=== PATIENT | male | born 1970 | race Hispanic/Latino ===

== ENCOUNTER 2024-10-15 12:42 | Inpatient (IN) | payer MEDICARE, SELFPAY ==
[2024-10-15 13:11] LABS: Absolute Basophils 0.1 K/uL (0-0.5); Absolute Eosinophils 0.2 K/uL (0-0.5); Absolute Lymphocytes (CBC) 1.4 K/uL (0.7-4.9); Absolute Monocytes 0.7 K/uL (0.1-1.3); Absolute Neutrophil 5.2 K/uL (1.8-8.0); Basophils % 0.8 % (0-1.3); Lymphocytes % 18.6 % (15.3-44.8); MCHC 34.6 g/dL (32.0-36.0); MCV 95.4 fL (80-100); Monocytes % 9.4 % (3.3-12.3); Neutrophils % 69.2 % (41.7-73.7); Nucleated Red Blood Cells % 0.1 % (0-0); Platelets 214 thou/uL (152-406); RBC Red Blood Cell Count 5.14 M/uL (4.33-5.43)
--- NOTE | 2024-10-15 13:17 | RAD REPORT ---
EXAM: CT brain without contrast HISTORY: STROKE ALERT COMPARISON: None TECHNIQUE: Multiple contiguous axial images were obtained and a CT of the brain without contrast. Sag ittal and coronal reformats were performed. One or more of the following dose reduction techniques were used: Automated exposure control, adjust ment of the mA and/or kV according to patient size, and/or iterative reconstruction. FINDINGS: No evidence of hydrocephalus, intracranial hemorrhage, or extra-axial fluid collection. Mild generalized brain atrophy. No evidence of midline shift or areas of brain edema. The calvarium is intact. The visualized paranasal sinuses and mastoid air cells are essentially clear . IMPRESSION: No evidence of acute intracranial abnormality. The findings were communicated with Kranthi Appiah at 10/15/2024 1:15 PM by telephone.
--- NOTE | 2024-10-15 13:20 | RAD REPORT ---
EXAMINATION: CTA HEAD CLINICAL INDICATION: STROKE ALERT TECHNIQUE: Axial CT images were obtained through the head after intravenous contrast utilizing angiog raphic protocol with 3D post-processing (maximum intensity projection images, volume rendered images and/or shaded surface rendered images). One or more of the following dose reduction technique s were used: Automated exposure control, adjustment of the mA and/or kV according to patient size, and/or iterative reconstruction. Unless otherwise specified, incidental findings do not require dedic ated imaging follow-up. COMPARISON: No prior exam. FINDINGS: ICA: The petrous, cavernous, and supraclinoid segments of the bilateral internal carotid arteries are normal. The ophthalmic artery origins are visualized and normal. The posterior communicating arteries are patent. ALLY: Anterior cerebral arteries are normal bilaterally. The anterior communicating artery is patent. MCA: Middle cerebral arteries are normal bilaterally. BLACKSMITH APPRENTICE: Posterior cerebral arteries are normal bilaterally. Vertebrobasilar: The vertebral arteries are patent. The left vertebral artery is dominant. The basila r artery is normal in appearance. 3D images confirm these findings. IMPRESSION: No significant flow abnormality is identified.
[2024-10-15 13:21] LABS: PT Prothrombin Time 10.9 SECONDS (10.0-13.0); PTT, Activated Partial Thromb 29.3 SECONDS (24.3-36.9); Protime INR 0.95
[2024-10-15 13:31] LABS: Albumin 3.7 g/dL (3.4-5.0); Albumin/Globulin Ratio 0.9 (1.1-1.8); Anion Gap 13.2 mEq/L (5.0-15.0); Bilirubin Direct 0.3 mg/dL (0-0.2); Bilirubin Indirect, Calculated 0.8 mg/dL (0.2-0.8); Bilirubin Total 1.1 mg/dL (0.2-1.0); Potassium 4.2 mEq/L (3.5-5.1); Protein, Total 7.7 g/dL (6.4-8.2); Troponin High Sensitivity 10.6 pg/mL (<58.9)
--- NOTE | 2024-10-15 13:36 | RAD REPORT ---
EXAMINATION: CTA NECK CLINICAL INDICATION: stroke TECHNIQUE: Axial CT images were obtained from the aortic arch to the skull base after intravenous con trast utilizing angiographic protocol with 3D post-processing (maximum intensity projection images, volume rendered images and/or shaded surface rendered images). One or more of the following dose redu ction techniques were used: Automated exposure control, adjustment of the mA and/or kV according to patient size, and/or iterative reconstruction. Unless otherwise specified, incidental findings do not require dedicated imaging follow-up. COMPARISON: No prior exam. FINDINGS: AORTA: The imaged aortic arch is normal. CCA: The common carotid arteries are patent and normal in caliber. ICA/ECA: Moderate hard plaquing is seen in both carotid bulbs resulting in mild stenosis on the left less than 50% and mild to moderate stenosis on the right estimated at 50%. VERTEBRAL: The cervical vertebral arteries are patent. The left vertebral artery appears dominant. SOFT TISSUE: No significant neck soft tissue abnormalities. The visualized lung apices are clear. 3D images confirm these findings. IMPRESSION: Eapj-nh-[id number] bilateral carotid stenosis as detailed caused by hard plaquing, slightly more signif icant on the right. NASCET criteria used. Mild 0-49% stenosis Moderate 50-69% stenosis Severe 70-99% stenosis
--- NOTE | 2024-10-15 13:37 | RAD REPORT ---
EXAMINATION: ONE VIEW CHEST XR CLINICAL INDICATION: stroke TECHNIQUE: Frontal chest projection is submitted. Examination is limited by patient positioning and t echnique. COMPARISON: No prior exam. FINDINGS: Chzu-[id number]-[id number] bilateral pulmonary opacities suggest pulmonary edema. The heart is moderately enlar ged. No displaced fractures identified. IMPRESSION: [id number] CHF versus volume overload pattern.
--- NOTE | 2024-10-15 14:15 | EDPHYS ---
Physician Documentation [facility] Name: Nicolas Beard Age: 54 yrs Sex: Male : 1970 Arrival Date: 10/15/2024 Time: 12:42 Bed 4 Private MD: ED Physician Kranthi Appiah HPI: 10/15 13:04 This 54 yrs old Male presents to ER via Wheelchair with complaints of CVA. rt 13:04 Patient presents to the ED with an acute onset of right-sided weakness starting at rt about noon. Patient has had worsening confusion, difficulty with speech. Patient was reportedly well this morning. I discussed with the on the phone, he does have a history of hypertension and diabetes, takes medicines for that. Patient does have a history of significant alcohol abuse, the states that he vomits blood most mornings and has been doing so for some time but is never been scoped nor had this evaluated. Denies other acute complaints at this time, symptoms are severe in severity, no other aggravating or alleviating factors.. - Immunization history:: Adult Immunizations unknown. - Infectious Disease History:: Denies. - Social history:: Smoking status: Patient reports the use of cigarette tobacco products. ROS: 13:04 Unable to obtain ROS due to Nonverbal patient, rt Exam: 13:04 Constitutional: This is a well developed, well nourished patient who is awake, alert, rt and in no acute distress. Head/Face: Normocephalic, atraumatic. Chest/axilla: Normal chest wall appearance and motion. Nontender with no deformity. No lesions are appreciated. Cardiovascular: Regular rate and rhythm with a normal S1 and S2. No gallops, murmurs, or rubs. Normal PMI, no JVD. No pulse deficits. Respiratory: Lungs have equal breath sounds bilaterally, clear to auscultation and percussion. No rales, rhonchi or wheezes noted. No increased work of breathing, no retractions or nasal flaring. Abdomen/GI: Soft, non-tender, with normal bowel sounds. No distension or tympany. No guarding or rebound. No evidence of tenderness throughout. Skin: Warm, dry with normal turgor. Normal color with no rashes, no lesions, and no evidence of cellulitis. 13:04 Neuro: Mumbling, incoherent speech, dense hemiparesis on right upper, right lower extremities, right-sided facial droop, no other obvious cranial nerve deficits, sensation not testable due to cooperation, understanding., 13:27 ECG was reviewed by the Attending Physician. rt Vital Signs: 12:40 Pulse 92; Resp 18; Pulse Ox 98% ; db 13:12 BP 140 / 96; Pulse 86; Resp 15; Pulse Ox 95% on R/A; ld1 12:40 UNABLE TO OBTAIN INITIAL BP. db NIH Stroke Scale Scores: 13:04 NIHSS Score: 14 rt MDM: 12:52 Medical Screening Exam initiated rt 14:46 Differential Diagnosis Acute CVA, TIA, LVO, intracranial hemorrhage. Data reviewed: rt vital signs, nurses notes, lab test result(s), EKG, radiologic studies. Consideration of Admission/Observation Patient was admitted/placed on observation. Management of patient was discussed with the following: Aerial Photogrammetrist: Discussed with Dr. Lilly, given possible history of varicosities as well as occasional vomiting blood, believe that the risks of TNKase administration are greater then potential benefits given possible worsening bleeding. Recommends against dual antiplatelet therapy, recommends aspirin at this time.. I considered the following discharge prescriptions or medication management in the emergency department Medications were administered in the Emergency Department. See MAR. Independent interpretation of the following test(s) in the Emergency Department CT Scan: My interpretation is No intracranial hemorrhage seen on interpretation of CT scan images. Historians other than the Patient: Spouse/Significant Other: Spouse states that the patient very frequently will have episodes of vomiting blood in the morning, reports history of heavy alcohol use.. Care significantly affected by the following chronic conditions: Diabetes, Hypertension. Care significantly affected by the following Social Determinants of Health: Misuse of alcohol and/or drugs. Counseling: I had a detailed discussion with the patient and/or guardian regarding the historical points, exam findings, and any diagnostic results supporting the discharge/admit diagnosis, lab results, radiology results, the need for further work-up and treatment in the hospital. Response to treatment: There is no appreciated change of the patient's symptoms at this time. ED course: Thrombolytics are contraindicated due to possible GI bleeding. No large vessel occlusion identified on CT angiogram, is not an endovascular retrieval candidate.. 10/15 12:54 Order name: Basic Metabolic Panel; Complete Time: 13:35 rt 10/15 12:54 Order name: CBC with Diff; Complete Time: 13:35 rt 10/15 12:54 Order name: Hepatic Function; Complete Time: 13:35 rt 10/15 12:54 Order name: High Sensitivity Troponin; Complete Time: 13:35 rt 10/15 12:54 Order name: Protime (+inr); Complete Time: 13:35 rt 10/15 12:54 Order name: Ptt, Activated; Complete Time: 13:35 rt 10/15 13:21 Order name: Glucose, Ancillary Testing; Complete Time: 13:35 EDMS 10/15 15:22 Order name: Magnesium EDMS 10/15 15:22 Order name: Phosphorus EDMS 10/15 15:22 Order name: T4 Free EDMS 10/15 15:22 Order name: Thyroid Stimulating Hormone EDDC 10/15 15:22 Order name: Urinalysis w/ reflexes EDMS 10/15 15:22 Order name: Basic Metabolic Panel EDDC 10/15 15:22 Order name: Basic Metabolic Panel EDDC 10/15 15:22 Order name: CBC with Automated Diff EDMS 10/15 15:22 Order name: CBC with Automated Diff EDMS 10/15 15:22 Order name: Troponin High Sensitivity EDMS 10/15 15:22 Order name: Troponin High Sensitivity EDMS 10/15 15:22 Order name: Troponin High Sensitivity EDMS 10/15 15:22 Order name: Troponin High Sensitivity EDDC 10/15 16:18 Order name: Troponin High Sensitivity EDDC 10/15 17:31 Order name: NT PRO-BNP EDDC 10/15 12:54 Order name: CT Head Angio; Complete Time: 13:35 rt 10/15 12:54 Order name: CT Neck Angio; Complete Time: 13:38 rt 10/15 12:54 Order name: CT Stroke Brain w/o Contrast; Complete Time: 13:35 rt 10/15 12:54 Order name: Stroke CXR 1 View; Complete Time: 13:38 rt 10/15 15:26 Order name: Echo with Doppler EDMS 10/15 17:06 Order name: MRI EDDC 10/15 15:22 Order name: Patient Safety Orders EDMS 10/15 15:22 Order name: CONS Physician Consult EDMS 10/15 12:54 Order name: Accucheck; Complete Time: 13:03 rt 10/15 12:54 Order name: Cardiac monitoring; Complete Time: 13:11 rt 10/15 12:54 Order name: EKG - Nurse/Tech; Complete Time: 13:11 rt 10/15 12:54 Order name: IV Saline Lock; Complete Time: 13:04 rt 10/15 12:54 Order name: Labs collected and sent; Complete Time: 13:04 rt 10/15 12:54 Order name: NPO; Complete Time: 13:04 rt 10/15 12:54 Order name: O2 Per Protocol; Complete Time: 13:07 rt 10/15 12:54 Order name: O2 Sat Monitoring; Complete Time: 13:07 rt 10/15 12:54 Order name: Stroke Swallow Screen; Complete Time: 13:22 rt EC: Rate is 84 beats/min. Rhythm is regular, Normal Sinus Rhythm with No ectopy, Right rt bundle branch block. QRS [place] is Normal. ME interval is normal. QRS interval is normal. QT interval is normal. No Q waves. No ST changes noted. Interpreted by me. Administered Medications: 14:20 Drug: Thiamine IV 100 mg IV at calculated rate once Route: IV; Rate: calculated rate; ld1 Site: left wrist; 21:02 Follow up: Response: No adverse reaction; IV Status: Completed infusion; IV Intake: al5 100ml 14:20 Drug: Aspirin PO 325 mg PO once Route: PO; ld1 21:02 Follow up: Response: No adverse reaction al5 Disposition: 14:48 Chart complete. rt Disposition Summary: 10/15/24 14:15 Hospitalization Ordered Notes: Hospitalization Status: Inpatient Admission rt Provider: Aishwarya Logan rt Condition: Serious rt Problem: new rt Symptoms: are unchanged rt Bed/Room Type: Standard rt Location: Telemetry/MedSurg (Inpatient)(10/15/24 19:19) sp Room Assignment: [facility](10/15/24 19:19) sp Diagnosis - Acute CVA rt Forms: - Medication Reconciliation Form rt - SBAR form rt - Leadership Thank You Letter rt Critical care time excluding procedures: 14:48 Critical care time: Bedside Care: 30 minutes, Consultation: 10 minutes. Total time: 40 rt minutes NIH Stroke Scale - NIH Stroke Score Date: 10/15/2024 Time: 13:04 Total Score = 14 10. Dysarthria (speech clarity - read or repeat words) - 1(Mild to Moderate) 11. Extinction and Inattention (visual/tactile/auditory/spatial/personal) - 0(No abnormality) 1a. Level of Consciousness (LOC) - 0(Alert) 1b. Level of Consciousness (LOC) (Month \T\ Age) - 2(Neither) 1c. LOC Commands (Open \T\ Closes Eyes/Asian Studies Professor) - 0(Both) 2. Best Gaze (Lateral Gaze Paresis) - 0(Normal) 3. Visual Field Loss - 0(No visual loss) 4. Facial Palsy - 2(Partial paralysis) 5a. Left Arm: Motor (10-second hold) - 0(No drift) 5b. Right Arm: Motor (10-second hold) - 4(No movement) 6a. Left Leg: Motor (5-second hold - always test supine) - 0(No drift) 6b. Right Leg: Motor (5-second hold - always test supine) - 4(No movement) 7. Limb Ataxia (finger/nose \T\ heel/nieto - test with eyes open) - 0(Absent) 8. Sensory Loss (pinprick arms/legs/face) - 0(Normal) 9. Best Language: Aphasia (description/naming/reading) - 1(Mild to moderate aphasia) Initials: rt Signatures: Dispatcher [employer] EDMS Cathie Elizabeth Lauren, RN RN ld1 Colleen Beyer, RN RN kb3 Stephanie Fulton, RN RN db Kranthi Appiah MD MD rt Sherley Holly RN al5 Corrections: (The following items were deleted from the chart) 12:54 12:54 BASIC METABOLIC PANEL+C.LAB.BRZ ordered. EDMS EDMS 12:54 12:54 CBC+H.LAB.BRZ ordered. EDMS EDMS 12:54 12:54 HEPATIC FUNCTION+C.LAB.BRZ ordered. EDMS EDMS 12:54 12:54 Troponin High Sensitivity+C.LAB.BRZ ordered. EDMS EDMS 12:54 12:54 PROTIME (+INR)+COAG.LAB.BRZ ordered. EDMS EDMS 12:54 12:54 PTT, ACTIVATED+COAG.LAB.BRZ ordered. EDMS EDMS 12:54 12:54 Head Angio+CT.RAD.BRZ ordered. EDMS EDMS 12:54 12:54 Neck Angio+CT.RAD.BRZ ordered. EDMS EDMS 12:54 12:54 CT-STROKE BRAIN W/O CONTRAST+CT.RAD.BRZ ordered. EDMS EDMS 12:54 12:54 Chest Single View+RAD.RAD.BRZ ordered. EDMS EDMS 16:21 14:15 Telemetry/MedSurg (Inpatient) rt kb3 16:21 14:15 rt kb3 19:19 16:21 [facility] ER HOLD kb3 sp 19:19 16:21 ERHOLD- kb3 sp
--- NOTE | 2024-10-15 14:15 | ER ---
Nurse's Notes [facility] Name: Nicolas Beard Age: 54 yrs Sex: Male : 1970 Arrival Date: 10/15/2024 Time: 12:42 Bed 4 Private MD: Diagnosis: Acute CVA Presentation: 10/15 12:40 Chief complaint: Patient states: R sided paralysis that began 40 mintues ago. ss 12:40 Chief complaint: PATIENT FOUND BY FAMILY WITH RIGHT SIDE PARALYSES AND CONFUSION. LAST db KNOWN NORMAL AT 1200. PATIENT UNABLE TO FOLLOW COMMANDS AND ANSWER QUESTIONS. Coronavirus screen: Client denies travel out of the [place] in the last 14 days. At this time, the client does not indicate any symptoms associated with coronavirus-19. Ebola Screen: Patient negative for fever greater than or equal to 101.5 degrees Fahrenheit, and additional compatible Ebola Virus Disease symptoms Patient denies exposure to infectious person. Patient denies travel to an Ebola-affected area in the 21 days before illness onset. No symptoms or risks identified at this time. Initial Sepsis Screen: Does the patient meet any 2 criteria? No. Patient's initial sepsis screen is negative. Does the patient have a suspected source of infection? No. Patient's initial sepsis screen is negative. Risk Assessment: Do you want to hurt yourself or someone else? Patient reports no desire to harm self or others. Onset of symptoms was October 15, 2024 at 12:00. 12:40 Method Of Arrival: Wheelchair db 12:40 Acuity: LEOBARDO 2 db Triage Assessment: 12:49 General: Appears in no apparent distress. Behavior is CONFUSED. Pain: Unable to use db pain scale. Patient is disoriented. Neuro: Level of Consciousness is awake, alert, Oriented to none. Respiratory: Airway is patent Respiratory effort is even, unlabored, Respiratory pattern is regular, symmetrical. - Immunization history:: Adult Immunizations unknown. - Infectious Disease History:: Denies. - Social history:: Smoking status: Patient reports the use of cigarette tobacco products. Screenin:07 [facility] ED Fall Risk Assessment (Adult) History of falling in the last 3 months, bp including since admission No falls in past 3 months (0 pts) Confusion or Disorientation No (0 pts) Intoxicated or Sedated No (0 pts) Impaired Gait No (0 pts) Mobility Assist Device Used No (0 pt) Altered Elimination No (0 pt) Score/Fall Risk Level 0 - 2 = Low Risk Oriented to surroundings. Abuse screen: Denies threats or abuse. Denies injuries from another. Nutritional screening: No deficits noted. Tuberculosis screening: No symptoms or risk factors identified. Assessment: 12:40 Reassessment: CODE STROKE CALLED. ss 12:47 Reassessment: Pt to CT. ld1 13:06 Reassessment: PER MD, PT NOT TNKASE CANDIDATE 2/2 DAILY HEMATEMESIS. bp 19:18 Rosa Swallow Protocol Exclusion Criteria: Exclusion Criteria Result: Proceed Brief al5 Cognitive Screen Oral Mechanism Examination Facial Symmetry: Normal, Motion: Normal, Lip Closure: Normal, Oral Mechanism Result: Normal. 3 oz Water Swallow Challenge: Pt able to drink all water without stopping, coughing, choking or throat clearing: Yes Result: PASS. Vital Signs: 12:40 Pulse 92; Resp 18; Pulse Ox 98% ; db 13:12 BP 140 / 96; Pulse 86; Resp 15; Pulse Ox 95% on R/A; ld1 12:40 UNABLE TO OBTAIN INITIAL BP. db NIH Stroke Scale Scores: 13:04 NIHSS Score: 14 rt ED Course: 12:40 Arm band placed on Patient placed in an exam room. db 12:44 Patient arrived in ED. bd 12:49 Triage completed. db 12:52 Kranthi Appiah MD is Attending Physician. rt 13:00 Inserted saline lock: 18 gauge in right wrist, using aseptic technique. Blood zm collected. Flushed with 10 mL NS. 13:03 Initial lab(s) drawn, by me, sent to lab. zm 13:04 Basic Metabolic Panel Sent. zm 13:04 CBC with Diff Sent. zm 13:04 Hepatic Function Sent. zm 13:04 High Sensitivity Troponin Sent. zm 13:04 Protime (+inr) Sent. zm 13:04 Ptt, Activated Sent. zm 13:06 Domingo Patricia, RN is Primary Nurse. bp 13:08 Patient has correct armband on for positive identification. bp 13:12 CT Head Angio In Process Unspecified. EDMS 13:12 CT Neck Angio In Process Unspecified. EDMS 13:12 CT Stroke Brain w/o Contrast In Process Unspecified. EDMS 13:16 Inserted saline lock: 18 gauge in left forearm, using aseptic technique. Flushed with zm 10 mL NS. 13:33 Stroke CXR 1 View In Process Unspecified. EDMS 14:14 Aishwarya Logan MD is Hospitalizing Provider. rt 21:01 Provided Education on: need for admission. al5 21:01 No provider procedures requiring assistance completed. Patient admitted, IV remains in al5 place. Administered Medications: 14:20 Drug: Thiamine IV 100 mg IV at calculated rate once Route: IV; Rate: calculated rate; ld1 Site: left wrist; 21:02 Follow up: Response: No adverse reaction; IV Status: Completed infusion; IV Intake: al5 100ml 14:20 Drug: Aspirin PO 325 mg PO once Route: PO; ld1 21:02 Follow up: Response: No adverse reaction al5 Medication: 21: VIS not applicable for this client. al5 Intake: 21:02 IV: 100ml; Total: 100ml. al5 Outcome: 14:15 Decision to Hospitalize by Provider. rt 21:01 Admitted to Med/surg accompanied by nurse, family with patient, via stretcher, room al5 207, with chart, 21:01 Condition: stable 21:01 Instructed on the need for admit, 21:01 Patient left the ED. al5 NIH Stroke Scale - NIH Stroke Score Date: 10/15/2024 Time: 13:04 Total Score = 14 10. Dysarthria (speech clarity - read or repeat words) - 1(Mild to Moderate) 11. Extinction and Inattention (visual/tactile/auditory/spatial/personal) - 0(No abnormality) 1a. Level of Consciousness (LOC) - 0(Alert) 1b. Level of Consciousness (LOC) (Month \T\ Age) - 2(Neither) 1c. LOC Commands (Open \T\ Closes Eyes/Quality Reviewer) - 0(Both) 2. Best Gaze (Lateral Gaze Paresis) - 0(Normal) 3. Visual Field Loss - 0(No visual loss) 4. Facial Palsy - 2(Partial paralysis) 5a. Left Arm: Motor (10-second hold) - 0(No drift) 5b. Right Arm: Motor (10-second hold) - 4(No movement) 6a. Left Leg: Motor (5-second hold - always test supine) - 0(No drift) 6b. Right Leg: Motor (5-second hold - always test supine) - 4(No movement) 7. Limb Ataxia (finger/nose \T\ heel/nieto - test with eyes open) - 0(Absent) 8. Sensory Loss (pinprick arms/legs/face) - 0(Normal) 9. Best Language: Aphasia (description/naming/reading) - 1(Mild to moderate aphasia) Initials: rt Signatures: Dispatcher [employer] EDMS Lexi Degroot Shelby, RN RN ss Peltier, Brian, RN RN bp Sims, Lauren, RN RN ldLakeisha Capone Danielle RN RN db Kranthi Appiah MD MD rt Sherley Holly RN RN al5 Corrections: (The following items were deleted from the chart) 13:03 13:03 Inserted saline lock: 18 gauge in right wrist, using aseptic technique. zm Blood collected. Flushed with 10 mL NS zm
[2024-10-15] MEDS ORDERED: THIAMINE 200 MG/2 ML INJ ONE (14:16)
[2024-10-15] MEDS ORDERED: ASPIRIN 81 MG CHEWABLE TABLET ONE (14:16)
[2024-10-15] MEDS ORDERED: ONDANSETRON 4 MG/2 ML VIAL IV PRN (15:15)
[2024-10-15] MEDS ORDERED: ACETAMINOPHEN 325 MG TABLET PO PRN (15:19)
[2024-10-15] MEDS ORDERED: GLUCAGON 1 MG/VIAL IM PRN (15:43)
[2024-10-15] MEDS ORDERED: D10W 125 ML IV PRN (15:43)
--- NOTE | 2024-10-15 15:48 | P.HP ---
Certification for Inpatient Patient admitted to: Inpatient With expected LOS: >2 Midnights Patient will require the following post-hospital care: None Practitioner: I am a practitioner with admitting privileges, knowledge of patient current condition, hospital course, and medical plan of care. Services: Services provided to patient in accordance with Admission requirements found in Title 42 Section 412.3 of the Code of Federal Regulations <Betzy Dfufy - Last Filed: 10/15/24 19:28> Patient History Date of Service: 10/15/24 Reason for admission: Right sided hemiplegia, dysarthria History of Present Illness: Patient is a 54-year-old male with a past medical history significant for hypertension, DM2, alcohol abuse who presents with complaint of right-sided weakness and hemiparesis onset this morning. Patient is Turkish-speaking. Patient currently confused and with speech difficulties. Patient is unable to provide any history. Patient's speech is garbled. Patient's reported the patient was at work when they noticed patient developed difficulty with speech and right-sided weakness. Patient's prior reported that patient has been having episodes of periodic hematemesis sometimes in the mornings. No other signs and symptoms reported. Symptoms are aggravated or relieved by doctor. Patient was brought to the hospital for medical evaluation. Home medications list reviewed: Yes - Past Medical/Surgical History Diabetic: Yes -: Alcohol abuse. -: Hypertension -: DM2. Past Surgical History: Reviewed- Non-Contributory - Family History Family History: Reviewed- Non-Contributory - Social History Smoking Status: Never smoker Alcohol use: Yes CD- Drugs: No Caffeine use: No Place of Residence: Home <Betzy Duffy - Last Filed: 10/15/24 19:28> Date of Service: 10/15/24 <Aishwarya Logan - Last Filed: 10/15/24 19:37> Allergies No Known Allergies Allergy (Unverified 10/15/24 15:50) Review of Systems is unable to be obtained (Speech is garbled and patient is confused.) <Betzy Duffy - Last Filed: 10/15/24 19:28> Physical Examination - Physical Exam General: Alert, In no apparent distress, Confused HEENT: Atraumatic, PERRLA, Mucous membr. moist/pink, EOMI, Sclerae nonicteric Neck: Supple, 2+ carotid pulse no bruit, No LAD, Without JVD or thyroid abnormality Respiratory: Clear to auscultation bilaterally, Normal air movement Cardiovascular: No edema, Regular rate/rhythm, Normal S1 S2 Capillary refill: <2 Seconds Gastrointestinal: Normal bowel sounds, No tenderness Musculoskeletal: No clubbing, No swelling, No tenderness Integumentary: No rashes Neurological: Normal tone, Normal affect, Abnormal gait, Abnormal speech, Abnormal strength, Abnormal tone Lymphatics: No axilla or inguinal lymphadenopathy - Studies Laboratory Data (last 24 hrs) 10/15/24 10/15/24 10/15/24 13:00 13:00 13:00 WBC 7.50 Hgb 17.0 Hct 49.0 Plt Count 214 PT 10.9 INR 0.95 APTT 29.3 Sodium 137 Potassium 4.2 BUN 16 Creatinine 0.95 Glucose 336 H Total Bilirubin 1.1 H AST 37 ALT 71 H Alkaline Phosphatase 107 <Betzy Duffy - Last Filed: 10/15/24 19:28> - Studies Laboratory Data (last 24 hrs) 10/15/24 10/15/24 10/15/24 13:00 13:00 13:00 WBC 7.50 Hgb 17.0 Hct 49.0 Plt Count 214 PT 10.9 INR 0.95 APTT 29.3 Sodium 137 Potassium 4.2 BUN 16 Creatinine 0.95 Glucose 336 H Total Bilirubin 1.1 H AST 37 ALT 71 H Alkaline Phosphatase 107 <Aishwarya Logan - Last Filed: 10/15/24 19:37> Assessment and Plan - Plan CVA with right-sided hemiparesis. Dysarthria Acute metabolic encephalopathy --MRI brain indicatess evidence of a 12 mm acute CVA left basal ganglia probably in the thalamus --CTA neck indicates mild stenosis on the left less than 50% and mild to moderate stenosis on the right estimated at 50%. --Echocardiogram pending to assess cardiac structures and functions. --CTA head indicates no LVO or occlusion. --Continue aspirin, Plavix and statin. --PT\ST\OT eval and treat. --Neurology consulted. Recommendations appreciated --Telemetry to monitor for any significant arrhythmia. DM2 with hyperglycemia. -- BS monitoring with sliding scale insulin. Hypertension --Will allow permissive hypertension for SBP less than 220 mmHg. --We will continue to monitor blood pressure levels. DVT prophylaxis with Lovenox subQ. Discharge Plan: Home Plan to discharge in: Greater than 2 days - Advance Directives Does patient have a Living Will: No Does patient have a Durable POA for Healthcare: No - Code Status/Comfort Care Code Status Assessed: Yes Physician Review: Patient Assessed, Agree with Above Assessment and Plan Critical Care: No <Betzy Duffy - Last Filed: 10/15/24 19:28> Physician Review: Patient Assessed, Agree with Above Assessment and Plan <Aishwarya Logan - Last Filed: 10/15/24 19:37>
[2024-10-15 16:17] LABS: Magnesium 2.3 mg/dL (1.6-2.4); Phosphorus 3.6 mg/dL (2.5-4.9); Thyroid Stimulating Hormone 1.44 uIU/mL (0.358-3.740); Troponin High Sensitivity 8.3 pg/mL (<58.9)
[2024-10-15] MEDS: INSULIN REGULAR (HUMAN) 100 UNIT/ML SQ SCH (16:30)
[2024-10-15] MEDS ORDERED: LORazepam 2 MG/ML VIAL ONE ×2 (16:30→17:25)
[2024-10-15] MEDS: LORazepam 2 MG/ML VIAL IV ONE ×2 (16:42→17:15)
[2024-10-15] MEDS ORDERED: FUROSEMIDE 40 MG/4 ML VIAL IV SCH (17:00)
--- NOTE | 2024-10-15 17:05 | RAD REPORT ---
EXAMINATION: MRI BRAIN WITHOUT CONTRAST CLINICAL INDICATION: R O CVA TECHNIQUE: Multiplanar multisequence MR images of the brain were obtained without intravenous contras t. Unless otherwise specified, incidental findings do not require dedicated imaging follow-up. COMPARISON: Recent WATER SYSTEM OPERATOR imaging FINDINGS: Due to excessive patient motion limited pulse sequences could be obtained. Diffusion-weighted imaging /ADC map shows evidence of a 12 mm acute CVA in the left basal ganglia. Further detailed assessment is not possible. No midline shift seen.. IMPRESSION: The study is very limited due to patient motion, however there is evidence of a 12 mm acute CVA left basal ganglia probably in the thalamus.
[2024-10-15] MEDS ORDERED: INSULIN REGULAR (HUMAN) 100 UNIT/ML ONE (18:04)
[2024-10-15] MEDS: MULTIVITAMIN TAB PO SCH (20:00)
[2024-10-15] MEDS: FOLIC ACID 1 MG TABLET PO SCH (20:00)
[2024-10-15] MEDS: THIAMINE HCL 100 MG TABLET PO SCH (20:00)
[2024-10-15] MEDS ORDERED: ATORVASTATIN 40 MG TAB ONE (20:07)
[2024-10-15] MEDS ORDERED: THIAMINE HCL 100 MG TABLET ONE (20:07)
[2024-10-15] MEDS ORDERED: FOLIC ACID 1 MG TABLET ONE (20:07)
[2024-10-15] MEDS ORDERED: ENOXAPARIN 40 MG/0.4 ML SQ ONE (20:08)
[2024-10-15] MEDS ORDERED: MULTIVITAMIN TAB PO ONE (20:08)
[2024-10-15] MEDS: ENOXAPARIN 40 MG/0.4 ML SQ SCH (20:21)
[2024-10-15] MEDS: ATORVASTATIN 40 MG TAB PO SCH (20:22)
[2024-10-15] MEDS: INSULIN GLARGINE 100 UNIT/ML SQ SCH (22:07)
[2024-10-15] MEDS: HYDRALAZINE HCL 20 MG/ML VIAL IV PRN (22:25)
[2024-10-15] MEDS: LORazepam 2 MG/ML VIAL IV PRN (23:58)
[2024-10-16] MEDS ORDERED: HYDRALAZINE HCL 20 MG/ML VIAL IV PRN
[2024-10-16] MEDS: HYDROCODONE/APAP 10/325 TAB PO PRN (02:19)
[2024-10-16 02:28] LABS: Urine Bilirubin NEGATIVE (Negative); Urine Blood Negative (Negative); Urine Clarity Clear (Clear); Urine Color Yellow (Yellow); Urine Glucose 4+ (Over) (Negative); Urine Ketones NEGATIVE (Negative); Urine Microscopic Reflex YN NO UMIC; Urine Nitrite NEGATIVE (Negative); Urine Protein NEGATIVE (Negative); Urine Urobilinogen Normal (Normal)
[2024-10-16 02:37] LABS: Specific Gravity > 1.030 (1.005-1.030)
[2024-10-16 04:49] LABS: Absolute Basophils 0.1 K/uL (0-0.5); Absolute Eosinophils 0.2 K/uL (0-0.5); Absolute Lymphocytes (CBC) 1.5 K/uL (0.7-4.9); Absolute Monocytes 0.7 K/uL (0.1-1.3); Absolute Neutrophil 4.5 K/uL (1.8-8.0); Basophils % 0.9 % (0-1.3); Eosinophils % 2.5 % (0-4.4); Hemoglobin 16.3 g/dL (13.6-17.9); Lymphocytes % 21.8 % (15.3-44.8); MCH 32.8 pg (27.0-35.0); MCHC 33.9 g/dL (32.0-36.0); MCV 96.9 fL (80-100); MPV 8.1 fL (7.6-11.3); Monocytes % 10.6 % (3.3-12.3); Neutrophils % 64.2 % (41.7-73.7); Platelets 209 thou/uL (152-406); RBC Red Blood Cell Count 4.95 M/uL (4.33-5.43); Red Cell Distribution Width 13.1 % (12.1-15.2)
[2024-10-16 05:06] LABS: Anion Gap 9.5 mEq/L (5.0-15.0); Potassium 3.5 mEq/L (3.5-5.1)
[2024-10-16] MEDS ORDERED: LORazepam 2 MG/ML VIAL IV PRN (06:25)
[2024-10-16] MEDS: LORazepam 2 MG/ML VIAL ONE (06:39)
[2024-10-16] MEDS: LORazepam 2 MG/ML VIAL IV SCH (08:00)
[2024-10-16] MEDS: CLOPIDOGREL 75 MG TABLET PO SCH (09:00)
[2024-10-16] MEDS: ASPIRIN 81 MG CHEWABLE TABLET PO SCH (09:00)
[2024-10-16] MEDS: ASPIRIN 300 MG/SUPP PR SCH (10:00)
[2024-10-16] MEDS: FOLIC ACID 1 MG, MULTIVITAMINS INJ 10 ML, THIAMINE HCL 100 MG in NA CHLORIDE 0.9% 1,000 ML IV SCH (10:11)
--- NOTE | 2024-10-16 13:09 | ECHO ---
HEIGHT: 5 ft 6 in WEIGHT: 180 lb 0 oz DATE OF STUDY: 10/16/[address]: Betzy Duffy 2-DIMENSIONAL: YES M.MODE: YES DOPPLER: YES COLOR FLOW: YES TDS: PORTABLE: YES DEFINITY: BUBBLE STUDY: DIAGNOSIS: SUSPECTED CONGESTIVE HEART FAILURE/ TRANSIENT ISCHEMIC ATTACK CARDIAC HISTORY: CATHERIZATION: SURGERY: PROSTHETIC VALVE: PACEMAKER: MEASUREMENTS (cm) DIASTOLIC (NORMALS) SYSTOLIC (NORMALS) IVSd 1.1 (0.6-1.2) LA Diam 3.5 (1.9-4.0) LVEF 60-65% LVIDd 4.8 (3.5-5.7) LVIDs 3.1 (2.0-3.5) %FS 35% LVPWd 1.3 (0.6-1.2) Ao Diam 2.4 (2.0-3.7) 2 DIMENSIONAL ASSESSMENT: RIGHT ATRIUM: NORMAL LEFT ATRIUM: NORMAL RIGHT VENTRICLE: NORMAL LEFT VENTRICLE: NORMAL TRICUSPID VALVE: NORMAL MITRAL VALVE: NORMAL PULMONIC VALVE: NORMAL AORTIC VALVE: NORMAL PERICARDIAL EFFUSION: NONE AORTIC ROOT: NORMAL LEFT VENTRICULAR WALL MOTION: NORMAL DOPPLER/COLOR FLOW: NORMAL COMMENTS: 1. NORMAL LEFT VENTRICULAR SYSTOLIC FUNCTION, EJECTION FRACTION 60-65%, NORMAL WALL MOTION 2. NORMAL DIASTOLIC FUNCTION TECHNOLOGIST: CRYSTAL BOSS
[2024-10-16] MEDS: LORazepam 2 MG/ML VIAL IV PRN (14:17)
[2024-10-16] MEDS ORDERED: DEXMEDETOMIDINE HCL 200 MCG in NA CHLORIDE 0.9% 98 ML IV SCH (15:00)
[2024-10-16] MEDS: DEXMEDETOMIDINE HCL 1,000 MCG in NA CHLORIDE 0.9% 490 ML IV SCH (15:28)
--- NOTE | 2024-10-16 15:28 | P.PN ---
Date of Service: 10/16/24 Subjective: Increasing agitation and confusion overnight Concern for worsening/severe alcohol withdrawal Patient moved to the ICU for further management ROS: 10 point ROS as noted above, otherwise negative Physical exam GEN: Disoriented, confused, agitated, not following commands HEENT: Normal conjunctiva, sclera anicteric CV: Regular rate and rhythm, no edema Pulm: Nonlabored respirations on room air ABD: Soft, nontender, nondistended MSK: No joint tenderness Integumentary: No rashes Neuro: Right upper and lower extremity weakness, slurred speech, not following commands, restless Vitals reviewed Assessment: 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 Severe/acute alcohol withdrawal and alcohol use disorder Diabetes mellitus type 2 with hyperglycemia Hypertension Plan: 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 CTA negative for LVO Did not receive TNK as family reported frequent bouts of hematemesis and heavy alcohol use Unable to pass swallow screen at this time likely secondary to severe alcohol withdrawals Rectal aspirin daily, neurology consult PT, OT, speech therapy when mental status is improving after alcohol withdrawals Likely to have prolonged/complicated hospitalization Severe/acute alcohol withdrawal and alcohol use disorder ICU for close monitoring Alcohol withdrawal protocol in place Precedex added given severe agitation Patient drinks at least 16-16 ounce beers daily and has for many years Patient appears to be having visual hallucinations, severe agitation already Diabetes mellitus type 2 with hyperglycemia Unclear what home medications patient is on ACHS Accu-Chek, sliding scale insulin Will obtain A1c level Hypertension Allow for permissive hypertension for the first 48 hours up to 220/110 DVT PPX:Lovenox Code status:Roll Or Tape Edge Machine Operator Spent Managing Pts Care (In Minutes): 45 <Keith Christopher - Last Filed: 10/16/24 15:30> I have personally seen and evaluated the patient. I have reviewed the history, physical exam findings, and assessment provided by Keith Christopher SEMICONDUCTOR TECHNICIAN. Care with the plan of care as documented, with any additional modifications as noted <Aishwarya Logan - Last Filed: 10/16/24 16:48>
--- NOTE | 2024-10-16 16:47 | EKG ---
Test Date: 2024-10-15 Test Time: 13:10:03 Superintendent Marine: Deshaun SOL MEASUREMENT RESULTS: Intervals: Rate: 84 NH: 182 QRSD: 98 QT: 382 QTc: 451 Ethel: P: 57 NH: 182 QRS: -4 T: 40 INTERPRETIVE STATEMENTS: Normal sinus rhythm Incomplete right bundle branch block Nonspecific T wave abnormality Abnormal ECG No previous ECG available for comparison Electronically Signed On 10-16-24 16:44:10 MANAGER CLINICAL RESEARCH by Simon Zhu
[2024-10-16] MEDS ORDERED: GLUCAGON 1 MG/VIAL IM PRN (18:11)
[2024-10-16] MEDS ORDERED: D10W 125 ML IV PRN (18:11)
[2024-10-16] MEDS: INSULIN GLARGINE 100 UNIT/ML SQ SCH (21:00)
[2024-10-17] MEDS: INSULIN REGULAR (HUMAN) 100 UNIT/ML SQ SCH (00:01)
[2024-10-17 05:42] LABS: Absolute Eosinophils 0.3 K/uL (0-0.5); Absolute Lymphocytes (CBC) 1.4 K/uL (0.7-4.9); Absolute Monocytes 0.8 K/uL (0.1-1.3); Absolute Neutrophil 6.3 K/uL (1.8-8.0); Basophils % 0.4 % (0-1.3); Eosinophils % 3.1 % (0-4.4); Hematocrit 53.8 % (39.6-49.0); Hemoglobin 17.9 g/dL (13.6-17.9); Lymphocytes % 16.1 % (15.3-44.8); MCH 32.7 pg (27.0-35.0); MCHC 33.2 g/dL (32.0-36.0); MCV 98.7 fL (80-100); Monocytes % 8.7 % (3.3-12.3); Neutrophils % 71.7 % (41.7-73.7); Nucleated Red Blood Cells % 0.1 % (0-0); Platelets 177 thou/uL (152-406); RBC Red Blood Cell Count 5.46 M/uL (4.33-5.43); Red Cell Distribution Width 13.1 % (12.1-15.2)
[2024-10-17 05:58] LABS: Anion Gap 10.2 mEq/L (5.0-15.0); Magnesium 2.2 mg/dL (1.6-2.4); Phosphorus 3.3 mg/dL (2.5-4.9); Potassium 4.2 mEq/L (3.5-5.1)
--- NOTE | 2024-10-17 13:37 | P.PN ---
Date of Service: 10/17/24 Subjective: Doing better in ICU on precedex No acute events overnight ROS: 10 point ROS as noted above, otherwise negative Physical exam GEN: Disoriented, confused, agitated, not following commands HEENT: Normal conjunctiva, sclera anicteric CV: Regular rate and rhythm, no edema Pulm: Nonlabored respirations on room air ABD: Soft, nontender, nondistended MSK: No joint tenderness Integumentary: No rashes Neuro: Right upper and lower extremity weakness, slurred speech, not following commands, restless Vitals reviewed Assessment: 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 Severe/acute alcohol withdrawal and alcohol use disorder Diabetes mellitus type 2 with hyperglycemia Hypertension Plan: 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 CTA negative for LVO Did not receive TNK as family reported frequent bouts of hematemesis and heavy alcohol use Unable to pass swallow screen at this time likely secondary to severe alcohol withdrawals Rectal aspirin daily, neurology consult PT, OT, speech therapy when mental status is improving after alcohol withdrawals Likely to have prolonged/complicated hospitalization Initially RUE and RLL seemed flaccid, now with movement in both Unable to get good neuro exam giving ongoing severe alcohol withdrawals Severe/acute alcohol withdrawal and alcohol use disorder ICU for close monitoring Alcohol withdrawal protocol in place Precedex added given severe agitation Patient drinks at least 16-16 ounce beers daily and has for many years Patient appears to be having visual hallucinations, severe agitation already Diabetes mellitus type 2 with hyperglycemia Unclear what home medications patient is on ACHS Accu-Chek, sliding scale insulin Will obtain A1c level Hypertension Allow for permissive hypertension for the first 48 hours up to 220/110 Monitor BP closely DVT PPX:Lovenox Code status:Bakery Pastry Internship Spent Managing Pts Care (In Minutes): 45
--- NOTE | 2024-10-17 21:17 | CON ---
Reason For Consultation: Consultation called because of stroke affecting the right body with dysarth octaviano. History Of Present Illness: Mr. Beard is a 54-year-old patient with history of very heavy chronic alc ohol abuse since age 16, drinking about 12 to 20 beers daily and apparently per his falling asle ep after he drinks and then he wakes up and drinks again. He has poorly controlled hypertension and diabetes mellitus. On around the 26th in the morning, which is 2 days ago, the patient woke up with right-sided weakness and difficulty with comprehension and expression. Speech was garbled. He was a t work. He actually was able to go to work when it got a lot worse. He was then noted to have episo naga of periodic hematemesis that is coughing up blood and when he came into the emergency room, he wa s evaluated to be within the window for possible thrombolysis, but because of coughing of blood, he w as unable to actually receive any thrombolysis. His CT scan of the head showed no acute ischemic or hemorrhagic changes. CT angiogram of the head and neck showed no significant large vessel occlusions . He was admitted in ICU for alcohol withdrawal and to address the stroke, which was subsequently id entified on MRI to be a 12 mm acute infarct in the left basal ganglia thalamic region. Laboratory Studies: Showed normal complete blood count with differential. Coagulation panel is norm al. INR 0.95. His liver function studies show ALT of 71, alkaline phosphatase of 107, AST of 37. H is TSH of 1.44, free T4 of 1.15. Sodium, potassium, chloride are unremarkable. Blood sugar is 336, phosphorus 3.6, magnesium 2.3. His LDL cholesterol was 121. Urinalysis: 4+ glucose, specific gravi ty greater than 1.03. Since being in ICU, the patient has had some symptoms of alcohol withdrawal. He does have folic acid. He has thiamine on board. He has the benzodiazepine as well to reduce the risk of alcohol withdrawal. He is receiving DVT prophylaxis with Lovenox. He has Crawford for pain. A spirin on board, Semglee insulin on board. Past Medical History: As noted above, significant for chronic heavy alcohol use, hypertension, uncon trolled diabetes mellitus. Family History: Noncontributory. Social History: Again, drinks about up to 20 beers daily for about 35 to 40 years. No current tobac co smoking. No marijuana use. Review of Systems: Not reliable at this point. The patient's who is [place]an-speaking only did say that he just dri nks until he passes out. Physical Examination: Vital Signs: Blood pressure 111/73, pulse , respiratory rate 18, temperature is 98.2, oxyg en saturation 100% on room air. Weight pounds, height 5 feet 6 inches, BMI is elevated. General: Mr. Beard again is resting in the ICU bed. His face is very red consistent with chronic hea vy alcohol use. He is moderately obese. HEENT: Otherwise, he is normocephalic, atraumatic. Sclerae anicteric. Oropharynx pink and moist. Neck: Supple. Chest: Clear. Heart: Regular. Neurologic: He does follow commands appropriately to move arms and legs, and they move equally well. There is some decreased sensation noted in the right upper and lower extremity compared to the left , but there is symmetric movement. He does not have any drift on the 5 seconds count to the legs and 10 seconds count to the arms. Face again, he does have slight subtle decrease to the left nasolabia l fold, but has good excursions and slight decreased sensation on the left face. Otherwise, no new f indings there. Assessment And Plan: Mr. Beard is a 54-year-old patient with chronic heavy alcohol use, who is curren tly in some phase of withdrawal, but he has been mitigated by benzodiazepine, thiamine, folic acid. He has uncontrolled diabetes mellitus and hypertension and a 12 mm acute stroke in the left basal keenan glia thalamic region. The patient was admonished that he needs to stop drinking alcohol. Currently, he should continue aspirin 81 mg daily. May hold off on Plavix. Continue folic acid, statin, grace ine, and his pain management. He is at risk of aspiration pneumonia and should have Speech Pathology to evaluate him and speech therapy will be very helpful, physical therapy as well. The patient is a t risk of withdrawal from alcohol for perhaps up to 2 weeks from his last drink and should be monitor ed closely. Once discharged, the patient may follow up in Dr. Lilly's clinic within a month. ZEB/DARBY Voice ID: [id number] Report ID: [id number]
[2024-10-18 06:17] LABS: Hematocrit 49.4 % (39.6-49.0); Hemoglobin 17.4 g/dL (13.6-17.9); MCH 33.4 pg (27.0-35.0); MCHC 35.2 g/dL (32.0-36.0); MCV 94.9 fL (80-100); MPV 8.6 fL (7.6-11.3); Platelets 194 thou/uL (152-406); RBC Red Blood Cell Count 5.21 M/uL (4.33-5.43); Red Cell Distribution Width 13.4 % (12.1-15.2)
[2024-10-18 06:29] LABS: Albumin 3.2 g/dL (3.4-5.0); Albumin/Globulin Ratio 0.8 (1.1-1.8); Anion Gap 11.8 mEq/L (5.0-15.0); Bilirubin Total 1.3 mg/dL (0.2-1.0); Magnesium 2.2 mg/dL (1.6-2.4); Phosphorus 3.5 mg/dL (2.5-4.9); Potassium 3.8 mEq/L (3.5-5.1); Protein, Total 7.2 g/dL (6.4-8.2)
[2024-10-18] MEDS: POTASSIUM CL SA 10 MEQ TAB PO ONE (08:08)
[2024-10-18] MEDS: ASPIRIN EC 81 MG TAB PO SCH (09:35)
[2024-10-18] MEDS: HYDRALAZINE HCL 20 MG/ML VIAL IV PRN (10:13)
[2024-10-18] MEDS: DEXMEDETOMIDINE HCL 200 MCG in NA CHLORIDE 0.9% 98 ML IV SCH (10:47)
[2024-10-18] MEDS: DEXMEDETOMIDINE HCL 1,000 MCG in NA CHLORIDE 0.9% 490 ML IV SCH (12:09)
--- NOTE | 2024-10-18 14:29 | P.PN ---
Date of Service: 10/18/24 Subjective: Doing better in ICU on precedex-still requiring precedex and PRN ativan Moving all extremities, following commands when not sedated ROS: 10 point ROS as noted above, otherwise negative Physical exam GEN: Disoriented, confused, agitated HEENT: Normal conjunctiva, sclera anicteric CV: Regular rate and rhythm, no edema Pulm: Nonlabored respirations on room air ABD: Soft, nontender, nondistended MSK: No joint tenderness Integumentary: No rashes Neuro: Right upper and lower extremity weakness, slurred speech, not following commands, restless Vitals reviewed Assessment: 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 Severe/acute alcohol withdrawal and alcohol use disorder Diabetes mellitus type 2 with hyperglycemia Hypertension Plan: 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 CTA negative for LVO Did not receive TNK as family reported frequent bouts of hematemesis and heavy alcohol use Seen by speech therapy who recommends pured diet with thin liquids for now Daily oral aspirin PT, OT, speech therapy when mental status is improving after alcohol withdrawals Likely to have prolonged/complicated hospitalization Initially RUE and RLL seemed flaccid, now with movement in both Unable to get good neuro exam giving ongoing severe alcohol withdrawals Severe/acute alcohol withdrawal and alcohol use disorder ICU for close monitoring Alcohol withdrawal protocol in place Precedex added given severe agitation Patient drinks at least 16-16 ounce beers daily and has for many years Patient appears to be having visual hallucinations, severe agitation already Diabetes mellitus type 2 with hyperglycemia Unclear what home medications patient is on ACHS Accu-Chek, sliding scale insulin Will obtain A1c level Hypertension Allow for permissive hypertension for the first 48 hours up to 220/110 Monitor BP closely DVT PPX:Lovenox Code status:Tetryl Wringer Operator Spent Managing Pts Care (In Minutes): 45
[2024-10-19 06:09] LABS: Albumin/Globulin Ratio 0.8 (1.1-1.8); Anion Gap 13.6 mEq/L (5.0-15.0); Bilirubin Total 1.5 mg/dL (0.2-1.0); Phosphorus 3.4 mg/dL (2.5-4.9); Potassium 4.6 mEq/L (3.5-5.1)
[2024-10-19 06:32] LABS: Hematocrit 49.2 % (39.6-49.0); Hemoglobin 17.4 g/dL (13.6-17.9); MCH 33.7 pg (27.0-35.0); MCHC 35.4 g/dL (32.0-36.0); MCV 95.3 fL (80-100); Platelets 185 thou/uL (152-406); RBC Red Blood Cell Count 5.16 M/uL (4.33-5.43); Red Cell Distribution Width 12.7 % (12.1-15.2)
[2024-10-19 06:33] LABS: MPV 9.2 fL (7.6-11.3)
[2024-10-19 07:44] LABS: Hematocrit 50.6 % (39.6-49.0); MCH 32.7 pg (27.0-35.0); MCHC 33.5 g/dL (32.0-36.0); MCV 97.5 fL (80-100); MPV 8.1 fL (7.6-11.3); Platelets 205 thou/uL (152-406); RBC Red Blood Cell Count 5.19 M/uL (4.33-5.43); Red Cell Distribution Width 12.7 % (12.1-15.2)
[2024-10-19 08:08] LABS: Albumin/Globulin Ratio 0.7 (1.1-1.8); Anion Gap 12.9 mEq/L (5.0-15.0); Bilirubin Total 1.5 mg/dL (0.2-1.0); Globulin 4.2 g/dL (2.3-3.5); Potassium 3.9 mEq/L (3.5-5.1); Protein, Total 7.2 g/dL (6.4-8.2)
--- NOTE | 2024-10-19 08:23 | RAD REPORT ---
EXAMINATION: ONE VIEW CHEST XR CLINICAL INDICATION: leukocytosis, R/O pneumonia TECHNIQUE: Frontal chest projection is submitted. Examination is limited by patient positioning and t echnique. COMPARISON: 10/15/2024 FINDINGS: Mild interstitial pulmonary edema. The heart is mildly to moderately enlarged. No displaced fractures identified. IMPRESSION: Mild CHF.
--- NOTE | 2024-10-19 10:03 | P.PN ---
Date of Service: 10/19/24 Subjective: Doing better in ICU on precedex-still requiring precedex and PRN ativan Moving all extremities, following commands when not sedated Hoping to wean sedatives so he can work with PO/OT/Speech tomorrow ROS: 10 point ROS as noted above, otherwise negative Physical exam GEN: Disoriented, confused, calm today HEENT: Normal conjunctiva, sclera anicteric CV: Regular rate and rhythm, no edema Pulm: Nonlabored respirations on room air ABD: Soft, nontender, nondistended MSK: No joint tenderness Integumentary: No rashes Neuro: Right upper and lower extremity weakness, slurred speech, restless Vitals reviewed Assessment: 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 Severe/acute alcohol withdrawal and alcohol use disorder Diabetes mellitus type 2 with hyperglycemia Hypertension Plan: 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 CTA negative for LVO Did not receive TNK as family reported frequent bouts of hematemesis and heavy alcohol use Seen by speech therapy who recommends pured diet with thin liquids for now Daily oral aspirin PT, OT, speech therapy when mental status is improving after alcohol withdrawals Initially RUE and RLL seemed flaccid, now with movement in both Unable to get good neuro exam giving ongoing severe alcohol withdrawals Severe/acute alcohol withdrawal and alcohol use disorder ICU for close monitoring Alcohol withdrawal protocol in place Precedex added given severe agitation Patient drinks at least 16-16 ounce beers daily and has for many years Patient appears to be having visual hallucinations, severe agitation already Diabetes mellitus type 2 with hyperglycemia Unclear what home medications patient is on ACHS Accu-Chek, sliding scale insulin Will obtain A1c level Hypertension Monitor BP closely May need new BP meds at DC DVT PPX:Lovenox Code status:Appliance Adjuster Spent Managing Pts Care (In Minutes): 45
[2024-10-20 05:32] LABS: Hematocrit 49.2 % (39.6-49.0); Hemoglobin 16.8 g/dL (13.6-17.9); MCHC 34.2 g/dL (32.0-36.0); MCV 96.5 fL (80-100); MPV 7.9 fL (7.6-11.3); Platelets 202 thou/uL (152-406); Red Cell Distribution Width 13.1 % (12.1-15.2)
[2024-10-20 05:49] LABS: Albumin/Globulin Ratio 0.8 (1.1-1.8); Anion Gap 10.7 mEq/L (5.0-15.0); Bilirubin Total 1.3 mg/dL (0.2-1.0); Magnesium 1.7 mg/dL (1.6-2.4); Potassium 3.7 mEq/L (3.5-5.1)
[2024-10-20] MEDS: MAGNESIUM SULFATE 1 gm IVPB 1 GM/100 ML BAG IV ONE (06:25)
[2024-10-20] MEDS: KCL 20 MEQ/100 mL IVPB 20 MEQ/100 ML BAG IV SCH (07:47)
--- NOTE | 2024-10-20 09:20 | P.PN ---
Date of Service: 10/20/24 Subjective: Awake, answering questions Advanced diet to pureed yesterday PT to evaluate today ROS: 10 point ROS as noted above, otherwise negative Physical exam GEN: Calm, cooperative, oriented x1 HEENT: Normal conjunctiva, sclera anicteric CV: NSR, S1 S2 present, no edema Pulm: Nonlabored respirations on room air ABD: Soft and nontender on palpation, active bowel sounds MSK: No joint tenderness Integumentary: No rashes Neuro: Speech clear Vitals reviewed Assessment: 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 Severe/acute alcohol withdrawal and alcohol use disorder Diabetes mellitus type 2 with hyperglycemia Hypertension Plan: 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 CTA negative for LVO Did not receive TNK as family reported frequent bouts of hematemesis and heavy alcohol use Seen by speech therapy who recommends pured diet with thin liquids for now Daily oral aspirin PT, OT, speech therapy today 3/3 Initially RUE and RLL seemed flaccid, now with movement in both Unable to get good neuro exam giving ongoing severe alcohol withdrawals Severe/acute alcohol withdrawal and alcohol use disorder ICU for close monitoring Alcohol withdrawal protocol in place, CIWA 0 Precedex added given severe agitation Patient drinks at least 16-16 ounce beers daily and has for many years Patient appears to be having visual hallucinations, severe agitation already Diabetes mellitus type 2 with hyperglycemia Unclear what home medications patient is on ACHS Accu-Chek, sliding scale insulin Will obtain A1c level Hypertension Monitor BP closely May need new BP meds at DC DVT PPX:Lovenox Code status:Full <Corin Osorio - Last Filed: 10/20/24 18:05> Chart has been reviewed. Events of the last 24 hours have been noted. Case discussed with MICAELA. I performed a substantial part of the MDM during this patient's care today. I personally made or approved the documented management plan and acknowledge its risk of complications. I agree with the findings and documentation provided in the MICAELA's notes <Maribell Ty - Last Filed: 11/01/24 02:13>
[2024-10-20] MEDS: QUETIAPINE 25 MG TAB PO SCH (20:00)
[2024-10-20] MEDS: chlordiazePOXIDE HCl 5 MG CAP PO SCH (20:00)
[2024-10-20] MEDS: HALOPERIDOL LACT 5 MG/ML INJ IV PRN (23:40)
[2024-10-21 06:01] LABS: Hematocrit 50.9 % (39.6-49.0); Hemoglobin 17.9 g/dL (13.6-17.9); MCH 33.6 pg (27.0-35.0); MCHC 35.2 g/dL (32.0-36.0); MCV 95.5 fL (80-100); MPV 8.5 fL (7.6-11.3); Platelets 197 thou/uL (152-406); RBC Red Blood Cell Count 5.33 M/uL (4.33-5.43)
[2024-10-21 06:11] LABS: Albumin 3.3 g/dL (3.4-5.0); Albumin/Globulin Ratio 0.8 (1.1-1.8); Anion Gap 10.6 mEq/L (5.0-15.0); Bilirubin Total 1.3 mg/dL (0.2-1.0); Globulin 4.4 g/dL (2.3-3.5); Magnesium 2.1 mg/dL (1.6-2.4); Phosphorus 2.6 mg/dL (2.5-4.9); Potassium 3.6 mEq/L (3.5-5.1); Protein, Total 7.7 g/dL (6.4-8.2)
[2024-10-21] MEDS: POTASSIUM CL SA 10 MEQ TAB PO ONE (09:00)
[2024-10-21] MEDS: KCL 20 MEQ/100 mL IVPB 20 MEQ/100 ML BAG IV SCH (09:34)
--- NOTE | 2024-10-21 14:22 | P.PN ---
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 Severe/acute alcohol withdrawal and alcohol use disorder Diabetes mellitus type 2 with hyperglycemia Hypertension Plan: 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 CTA negative for LVO Did not receive TNK as family reported frequent bouts of hematemesis and heavy alcohol use Seen by speech therapy who recommends pured diet with thin liquids for now Daily oral aspirin PT, OT, speech therapy today 3/3 Initially RUE and RLL seemed flaccid, now with movement in both Unable to get good neuro exam giving ongoing severe alcohol withdrawals Severe/acute alcohol withdrawal and alcohol use disorder ICU for close monitoring Alcohol withdrawal protocol in place Precedex severe agitation Patient drinks at least 16-16 ounce beers daily and has for many years Patient appears to be having visual hallucinations, severe agitation OVN Diabetes mellitus type 2 with hyperglycemia Unclear what home medications patient is on ACHS Accu-Chek, sliding scale insulin Will obtain A1c level Hypertension Monitor BP closely May need new BP meds at DC DVT PPX:Lovenox Code status:Full <Corin Osorio - Last Filed: 10/21/24 14:13> Chart has been reviewed. Events of the last 24 hours have been noted. Case discussed with MICAELA. I performed a substantial part of the MDM during this patient's care today. I personally made or approved the documented management plan and acknowledge its risk of complications. I agree with the findings and documentation provided in the MICAELA's notes <Maribell Ty - Last Filed: 11/01/24 02:13>
[2024-10-22 05:46] LABS: Hematocrit 49.6 % (39.6-49.0); Hemoglobin 16.8 g/dL (13.6-17.9); MCH 32.8 pg (27.0-35.0); MCHC 33.9 g/dL (32.0-36.0); MCV 96.8 fL (80-100); MPV 8.1 fL (7.6-11.3); Platelets 224 thou/uL (152-406); RBC Red Blood Cell Count 5.12 M/uL (4.33-5.43); Red Cell Distribution Width 13.2 % (12.1-15.2)
[2024-10-22 05:54] LABS: Albumin 3.1 g/dL (3.4-5.0); Albumin/Globulin Ratio 0.8 (1.1-1.8); Anion Gap 10.9 mEq/L (5.0-15.0); Bilirubin Total 1.3 mg/dL (0.2-1.0); Globulin 4.1 g/dL (2.3-3.5); Magnesium 1.7 mg/dL (1.6-2.4); Phosphorus 3.7 mg/dL (2.5-4.9); Potassium 3.9 mEq/L (3.5-5.1); Protein, Total 7.2 g/dL (6.4-8.2)
[2024-10-22] MEDS: MAGNESIUM SULFATE 1 gm IVPB 1 GM/100 ML BAG IV ONE (07:33)
[2024-10-22] MEDS: KCL 20 MEQ/100 mL IVPB 20 MEQ/100 ML BAG IV SCH (07:33)
[2024-10-22] MEDS: THIAMINE 200 MG/2 ML INJ IVP SCH (07:50)
[2024-10-22 09:26] LABS: Arterial Blood Carboxyhemoglob 0.8 % (0-1.5); Blood Gas Oxyhemoglobin 95.1 % (94-97); Blood O2 Saturation 96.8 % (92-98.5)
[2024-10-22 09:27] LABS: Blood Gas THB 18.4 g/dl (12-18)
--- NOTE | 2024-10-22 17:56 | P.PN ---
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 CTA negative for LVO Did not receive TNK as family reported frequent bouts of hematemesis and heavy alcohol use Seen by speech therapy who recommends pured diet with thin liquids for now Daily oral aspirin PT, OT, speech therapy today 3/3 Initially RUE and RLL seemed flaccid, now with movement in both Unable to get good neuro exam giving ongoing severe alcohol withdrawals Severe/acute alcohol withdrawal and alcohol use disorder ICU for close monitoring Alcohol withdrawal protocol in place Precedex prn severe agitation Patient drinks at least 16-16 ounce beers daily and has for many years Patient appears to be having visual hallucinations, severe agitation OVN Diabetes mellitus type 2 with hyperglycemia Unclear what home medications patient is on ACHS Accu-Chek, sliding scale insulin Will obtain A1c level Hypertension Monitor BP closely May need new BP meds at DC DVT PPX:Lovenox Code status:Full <Corin Osorio - Last Filed: 10/22/24 17:48> Chart has been reviewed. Events of the last 24 hours have been noted. Case discussed with MICAELA. I performed a substantial part of the MDM during this saida ent's care today. I personally made or approved the documented management plan and acknowledge its risk of complications. I agree with the findings and documentation provided in the MICAELA's notes <Maribell Ty - Last Filed: 11/01/24 02:14>
[2024-10-22] MEDS ORDERED: HYDROMORPHONE HCL 0.5 MG/0.5 ML INJ IV PRN (18:52)
[2024-10-22] MEDS: chlordiazePOXIDE HCl 25 MG CAP PO ONE (19:44)
[2024-10-23] MEDS: chlordiazePOXIDE HCl 5 MG CAP PO SCH (00:25)
[2024-10-23 06:09] LABS: Anion Gap 12.2 mEq/L (5.0-15.0); Phosphorus 3.6 mg/dL (2.5-4.9); Potassium 3.2 mEq/L (3.5-5.1)
[2024-10-23 07:13] LABS: Absolute Basophils 0.1 K/uL (0-0.5); Absolute Eosinophils 0.2 K/uL (0-0.5); Absolute Lymphocytes (CBC) 1.8 K/uL (0.7-4.9); Absolute Monocytes 1.1 K/uL (0.1-1.3); Absolute Neutrophil 4.5 K/uL (1.8-8.0); Basophils % 0.7 % (0-1.3); Eosinophils % 2.7 % (0-4.4); Hematocrit 50.2 % (39.6-49.0); Hemoglobin 17.5 g/dL (13.6-17.9); Lymphocytes % 23.9 % (15.3-44.8); MCH 33.3 pg (27.0-35.0); MCHC 34.9 g/dL (32.0-36.0); MCV 95.4 fL (80-100); MPV 8.5 fL (7.6-11.3); Monocytes % 14.2 % (3.3-12.3); Neutrophils % 58.5 % (41.7-73.7); Nucleated Red Blood Cells % 0.1 % (0-0); Platelets 260 thou/uL (152-406); RBC Red Blood Cell Count 5.26 M/uL (4.33-5.43)
[2024-10-23] MEDS: POTASSIUM CL SA 10 MEQ TAB PO ONE (08:27)
[2024-10-23] MEDS: METOPROLOL TARTRATE 5 MG/5 ML INJ IV STA (14:49)
[2024-10-23] MEDS: METOPROLOL TAR 50 MG TAB PO ONE (14:49)
--- NOTE | 2024-10-23 17:38 | P.PN ---
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 Severe/acute alcohol withdrawal and alcohol use disorder Diabetes mellitus type 2 with hyperglycemia Hypertension Plan: 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 CTA negative for LVO Did not receive TNK as family reported frequent bouts of hematemesis and heavy alcohol use Seen by speech therapy who recommends pured diet with thin liquids for now Daily oral aspirin PT, OT, speech therapy today 3/3 Initially RUE and RLL seemed flaccid, now with movement in both Unable to get good neuro exam giving ongoing severe alcohol withdrawals Severe/acute alcohol withdrawal and alcohol use disorder Alcohol withdrawal protocol in place Precedex stopped Patient drinks at least 16-16 ounce beers daily and has for many years Patient appears to be having visual hallucinations, severe agitation OVN Transfer to the floor Diabetes mellitus type 2 with hyperglycemia Unclear what home medications patient is on ACHS Accu-Chek, sliding scale insulin Will obtain A1c level Hypertension Monitor BP closely May need new BP meds at DC DVT PPX:Lovenox Code status:Full <Corin Osorio - Last Filed: 10/23/24 17:34> Chart has been reviewed. Events of the last 24 hours have been noted. Case discussed with MICAELA. I performed a substantial part of the MDM during this patient's care today. I personally made or approved the documented management plan and acknowledge its risk of complications. I agree with the findings and documentation provided in the MICAELA's notes <Maribell Ty - Last Filed: 11/01/24 02:14>
[2024-10-23] MEDS: METOPROLOL TAR 50 MG TAB PO SCH (18:00)
[2024-10-24 05:56] LABS: Absolute Basophils 0.1 K/uL (0-0.5); Absolute Eosinophils 0.3 K/uL (0-0.5); Absolute Lymphocytes (CBC) 1.8 K/uL (0.7-4.9); Absolute Monocytes 0.9 K/uL (0.1-1.3); Absolute Neutrophil 3.5 K/uL (1.8-8.0); Basophils % 1.2 % (0-1.3); Eosinophils % 4.8 % (0-4.4); Hematocrit 50.4 % (39.6-49.0); Hemoglobin 17.4 g/dL (13.6-17.9); Lymphocytes % 27.3 % (15.3-44.8); MCH 32.9 pg (27.0-35.0); MCHC 34.5 g/dL (32.0-36.0); MCV 95.5 fL (80-100); MPV 8.2 fL (7.6-11.3); Monocytes % 13.3 % (3.3-12.3); Neutrophils % 53.4 % (41.7-73.7); Nucleated Red Blood Cells % 0.2 % (0-0); Platelets 252 thou/uL (152-406); RBC Red Blood Cell Count 5.28 M/uL (4.33-5.43); Red Cell Distribution Width 12.9 % (12.1-15.2)
[2024-10-24 05:57] LABS: Anion Gap 13.4 mEq/L (5.0-15.0); Phosphorus 3.5 mg/dL (2.5-4.9); Potassium 3.4 mEq/L (3.5-5.1)
[2024-10-24] MEDS: POTASSIUM CL SA 10 MEQ TAB PO ONE (06:22)
[2024-10-24] MEDS: INSULIN REGULAR (HUMAN) 100 UNIT/ML SQ SCH (07:30)
--- NOTE | 2024-10-24 18:39 | P.PN ---
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 CTA negative for LVO Did not receive TNK as family reported frequent bouts of hematemesis and heavy alcohol use Seen by speech therapy who recommends pured diet with thin liquids for now Daily oral aspirin PT, OT, speech therapy today 3/3 Initially RUE and RLL seemed flaccid, now with movement in both Unable to get good neuro exam giving ongoing severe alcohol withdrawals Severe/acute alcohol withdrawal and alcohol use disorder Alcohol withdrawal protocol in place Precedex stopped Patient drinks at least 16-16 ounce beers daily and has for many years Patient appears to be having visual hallucinations, severe agitation OVN Transfer to the floor Diabetes mellitus type 2 with hyperglycemia Unclear what home medications patient is on ACHS Accu-Chek, sliding scale insulin Will obtain A1c level Hypertension Monitor BP closely May need new BP meds at DC DVT PPX:Lovenox Code status:Full <Corin Osorio - Last Filed: 10/25/24 07:01> Chart has been reviewed. Events of the last 24 hours have been noted. Case discussed with MICAELA. I performed a substantial part of the MDM during this patient's care today. I personally made or approved the documented management plan and acknowledge its risk of complications. I agree with the findings and documentation provided in the MICAELA's notes <Maribell Ty - Last Filed: 11/01/24 02:14>
[2024-10-25 05:59] VITALS: BMI 32.0
[2024-10-25 08:04] VITALS: O2SAT 94
[2024-10-25 08:09] VITALS: BP 149/92; TEMP 97.5
--- NOTE | 2024-11-01 02:15 | P.DS ---
Discharge Date: 10/25/24 Disposition: ROUTINE DISCHARGE Discharge Condition: GOOD Reason for Admission: Right sided hemiplegia, dysarthria Brief History of Present Illness: Patient is a 54-year-old male with a past medical history significant for hypertension, DM2, alcohol abuse who presents with complaint of right-sided weakness and hemiparesis onset this morning. Patient is English-speaking. Patient currently confused and with speech difficulties. Patient is unable to provide any history. Patient's speech is garbled. Patient's reported the patient was at work when they noticed patient developed difficulty with speech and right-sided weakness. Patient's prior reported that patient has been having episodes of periodic hematemesis sometimes in the mornings. No other signs and symptoms reported. Symptoms are aggravated or relieved by doctor. Patient was brought to the hospital for medical evaluation. Hospital Course: Patient went through delirium tremens. Patient had a basal ganglia stroke. Patient will continue with antiplatelet therapy and statin therapy and will take a tapering dose of Librium. Patient is stable for discharge with outpatient follow-up. Vital Signs/Physical Exam: Temp Pulse Resp BP Pulse Ox 97.5 F 65 13 149/92 H 97 10/25/24 08:00 10/25/24 08:00 10/25/24 08:00 10/25/24 08:00 10/25/24 08:00 General: Alert, In no apparent distress, Oriented x3 Laboratory Data at Discharge: WBC 6.60 thou/uL (4.3-10.9) 10/24/24 05:15 Hgb 17.4 g/dL (13.6-17.9) 10/24/24 05:15 Hct 50.4 % (39.6-49.0) H 10/24/24 05:15 Plt Count 252 thou/uL (152-406) 10/24/24 05:15 PT 10.9 SECONDS (10.0-13.0) 10/15/24 13:00 INR 0.95 10/15/24 13:00 APTT 29.3 SECONDS (24.3-36.9) 10/15/24 13:00 Sodium 139 mEq/L (136-145) 10/24/24 05:15 Potassium 3.4 mEq/L (3.5-5.1) L 10/24/24 05:15 BUN 13 mg/dL (7-18) 10/24/24 05:15 Creatinine 0.71 mg/dL (0.70-1.30) 10/24/24 05:15 Glucose 135 mg/dL (74-106) H 10/24/24 05:15 Phosphorus 3.5 mg/dL (2.5-4.9) 10/24/24 05:15 Magnesium 2.0 mg/dL (1.6-2.4) 10/24/24 05:15 Total Bilirubin 1.3 mg/dL (0.2-1.0) H 10/22/24 05:08 AST 39 U/L (15-37) H 10/22/24 05:08 ALT 58 U/L (16-61) 10/22/24 05:08 Alkaline Phosphatase 123 U/L (45-117) H 10/22/24 05:08 LDL Cholesterol Direct 121 mg/dL (100-129) 10/16/24 04:35 Home Medications: Aspirin [Aspirin EC 81 MG] 81 mg PO DAILY #30 tab 10/24/24 Atorvastatin Calcium [Lipitor] 40 mg PO BEDTIME #30 tab 10/24/24 Clopidogrel Bisulfate [Plavix*] 75 mg PO DAILY #30 tab 10/24/24 Metformin HCl 500 mg PO BID #60 tab 10/24/24 Metoprolol Tartrate [Lopressor*] 50 mg PO BID 6AM 6PM #60 tab 10/24/24 Thiamine HCl [Vitamin B-1] 250 mg PO DAILY #30 tab 10/24/24 chlordiazePOXIDE HCl [Chlordiazepoxide HCl] 10 mg PO TID #40 cap 10/24/24 New Medications: Aspirin [Aspirin EC 81 MG] 81 mg PO DAILY #30 tab chlordiazePOXIDE HCl [Chlordiazepoxide HCl] 10 mg PO TID #40 cap Atorvastatin Calcium [Lipitor] 40 mg PO BEDTIME #30 tab Metoprolol Tartrate [Lopressor*] 50 mg PO BID 6AM 6PM #60 tab Metformin HCl 500 mg PO BID #60 tab Clopidogrel Bisulfate [Plavix*] 75 mg PO DAILY #30 tab Thiamine HCl [Vitamin B-1] 250 mg PO DAILY #30 tab Physician Discharge Instructions: OK TO DC IV AND DC HOME FOLLOW-UP WITH PCP IN 1-2 WEEKS FOLLOW-UP WITH NEUROLOGY IN 2-4 WEEKS RETURN TO THE ER IF SYMPTOMS WORSENS CALL ME AT [phone] IF ANY QUESTIONS REGARDING HOSPITAL STAY CALL NURSING STATION AT [phone] IF ANY NURSING OR MEDICATION QUESTIONS Diet: AHA Activity: Fall precautions Followup: NONE,NONE [Primary Care Provider] - Time spent managing pt's care (in minutes): 35
== END 2024-10-25 11:30 | disposition home or self-care (01) | DRG 64 ==
LOC: ER 12:42 → ERHOLD 15:15 → 2ND 19:49 → 3RD-ICU 10-16 12:54 → OBSVTOIN 10-17 08:07 → 3RD-ICU 10-18 18:51 → 2ND 10-24 16:31
PROVIDERS: ADMIT Family Medicine; ATTEND Hospitalist
PROC: 4A033R1 Measurement of Arterial Saturation, Peripheral, Percutaneous Approach (ICD-10-PCS; principal; 2024-10-22)
DX: I63.9 Cerebral infarction, unspecified (principal); G93.41 Metabolic encephalopathy; G81.91 Hemiplegia, unspecified affecting right dominant side; F10.131 Alcohol abuse with withdrawal delirium; F10.132 Alcohol abuse with withdrawal with perceptual disturbance; I10 Essential (primary) hypertension; I65.23 Occlusion and stenosis of bilateral carotid arteries; E11.65 Type 2 diabetes mellitus with hyperglycemia; R41.0 Disorientation, unspecified; R47.1 Dysarthria and anarthria; R29.714 NIHSS score 14; F17.210 Nicotine dependence, cigarettes, uncomplicated; Z78.1 Physical restraint status
CPT/HCPCS: 36415; 36600; 70450; 70496; 70498; 70551; 71045; 80048; 80053; 80076; 81003; 82140; 82565; 82805; 82947; 83735; 83880; 84100; 84439; 84443; 84484; 85025; 85027; 85610; 85730; 92526; 92610; 93005; 93306; 96365; 96366; 97112; 97116; 97161; 97165; 99285; G0378; J0360; J1630; J1650; J1815; J3411; J3475; J3480; J7030; Q9967